=== PATIENT | female | born 1960 | race Caucasian/White ===

== ENCOUNTER 2023-01-19 11:55 | Emergency (ER) | payer MEDICARE, MEDICAID ==
[~2023-01-19] VITALS: Ht 165.1 cm; Wt 85.8 kg
[~2023-01-19 11:55] MED LIST: PHEN-786 PO
[2023-01-19 12:46] LABS: CLARITY,URINE CLEAR (Clear); COLOR,URINE YELLOW (Yellow); GLUCOSE, URINE >=1000 mg/dl (Neg); KETONES,URINE NEGATIVE (Neg); LEUKOCYTE ESTERASE ,URINE NEGATIVE (Neg); NITRITES, URINE NEGATIVE (Neg); OCCULT BLOOD,URINE LARGE (Neg); PROTEIN,URINE NEGATIVE (Neg); UROBILINOGEN,URINE 0.2 E.U/dL (0.2-1.0)
[2023-01-19 12:49] LABS: UA COLLECTION TYPE CLN CATCH MIDSTREAM
[2023-01-19 13:13] LABS: SQUAMOUS EPITHELIAL CELL,UR FEW /LPF (FEW)
[2023-01-19 13:15] LABS: BACTERIA,URINE FEW /HPF (Neg)
[2023-01-19] MEDS ORDERED: CEPH500C2 PO (14:11)
[2023-01-19 14:47] VITALS: BP 124/73
== END 2023-01-19 14:49 | disposition home or self-care (01) ==
LOC: ER 11:56
DX: N39.0 Urinary tract infection, site not specified (principal); Z79.899 Other long term (current) drug therapy
CPT/HCPCS: 81001; 87077; 87088; 87186; 99283